=== PATIENT | female | born 2000 | race Caucasian/White ===

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

== ENCOUNTER 2022-04-06 15:25 | Emergency (ER) | payer OTHER ==
[~2022-04-06] VITALS: Ht 170.2 cm; Wt 52.2 kg
[~2022-04-06 15:25] MED LIST changes: +KETO10TA2 PO
== END 2022-04-06 20:50 | disposition home or self-care (01) ==
LOC: EMR PED 15:25
DX: U07.1 COVID-19 (principal); J10.1 Influenza due to other identified influenza virus with other respiratory manifestations